=== PATIENT | male | born 1970 | race Caucasian/White ===

== ENCOUNTER → 2023-05-24 | Outpatient (CLI) | payer BC, SELFPAY ==
[2023-05-24 10:37] LABS: Absolute Lymphocyte Count 1.76 X10^3/uL (0.83-4.51); Absolute Neutrophil Count 2.8 X10^3/uL (2.0-7.7); Basophil# 0.05 X10^3/uL; Eosinophils% 1.9 % (0-5); Hematocrit 43.6 % (40-54); Hemoglobin 14.4 g/dL (13.0-16.5); Lymphocyte # 1.76 X10^3/ul (0.83-4.51); Lymphocyte % 33.5 % (19-41); Mean Corpuscular Hgb 30.4 pg (27.0-32.0); Mean Corpuscular Volume 92.2 fL (80-94); Mean Platelet Vol. 10.4 fl (6.2-12.0); Monocyte# 0.55 X10^3/uL; Monocyte% 10.5 % (0-10); NRBC Flagged by Analyzer 0 % (0-5); Neutrophil # 2.77 X10^3/uL (2.7-7.7); Neutrophil % 52.7 % (47-70); Platelet Count 242 K/mm3 (150-450); RBC Distribution Width CV 12.4 % (11.6-14.6); RBC Distribution Width SD 41.6 fl (35.1-43.9); Red Blood Count 4.73 M/mm3 (4.6-6.2); White Blood Count 5.3 K/mm3 (4.4-11.0)
[2023-05-24 11:17] LABS: ALB/GLOB Ratio 0.9 RATIO (0.9-2.4); AST(SGOT) 23 U/L (15-37); Alanine Aminotransfer ALT/SGPT 33 U/L (16-61); Albumin, Serum 3.6 g/dL (3.2-5.0); Alkaline Phosphatase 61 U/L (45-117); Anion Gap 5 (5-15); BUN 17 mg/dL (7-18); BUN/Creat Ratio 15.7 RATIO (10-20); Calcium,Total 8.8 mg/dL (8.5-10.1); Chloride 108 mmol/L (98-107); Cholesterol 219 mg/dL (200); Creatinine, Serum 1.08 mg/dL (0.70-1.30); EST Glomerular Filtration Rate 77 mL/min (>60); Est Glom Filt Rate - Afr Amer 93 mL/min (>60); Globulin 3.9 g/dL (2.2-4.2); Glucose 94 mg/dL (74-106); High Density Lipoprotein 56 mg/dL; PSA,Total- Diagnostic 1.44 ng/mL (0.0-4.0); Potassium 3.8 mmol/L (3.5-5.1); Protein, Total 7.5 g/dL (6.4-8.2); Sodium Level 139 mmol/L (136-145); Triglycerides 94 mg/dL; Very Low Density Lipoprotein 19 mg/dL (5-40)
[2023-05-24 12:16] LABS: Vitamin D,25 Hydroxy 43.2 ng/mL
== END | disposition home or self-care (01) ==
LOC: MFPLAB 09:41
PROVIDERS: PCP Family Medicine; Visit Provider Family Medicine
DX: R03.0 Elevated blood-pressure reading, without diagnosis of hypertension (principal); E55.9 Vitamin D deficiency, unspecified; Z13.1 Encounter for screening for diabetes mellitus; Z12.5 Encounter for screening for malignant neoplasm of prostate
CPT/HCPCS: 36415; 80053; 80061; 82306; 84153; 84443; 85025

== ENCOUNTER → 2023-07-20 | Outpatient (CLI) | payer BC, SELFPAY ==
--- NOTE | 2023-07-20 08:05 | MRI_ITS ---
STUDY: MRI LEFT ELBOW, WITHOUT AND WITH IV CONTRAST REASON FOR EXAM: Male, 53 years old. Mass left elbow - no pain. TECHNIQUE: Standardized fat and water weighted pulse sequences were obtained in all 3 orthogonal planes. Following the intravenous administration of 23 mm Clariscan contrast, additional postcontrast imaging was obtained. COMPARISON: Left elbow radiographs dated 06/30/2023. FINDINGS: There is a heterogeneous lobulated multiseptated mass in the subcutaneous fat along the posterolateral aspect of the elbow, overall measuring 1.9 cm AP, 4.7 cm transverse, and 5.9 cm craniocaudad. Following IV contrast administration there is heterogeneous internal enhancement superiorly and predominantly peripheral enhancement inferiorly. There is an additional heterogeneous mass in the subcutaneous fat posterior to the triceps myotendinous junction, overall measuring 1.1 cm AP, 1.9 cm transverse, and 3.1 cm craniocaudad. Following IV contrast administration, there is heterogeneous internal enhancement. Normal radio-capitellum articulation. Normal radial collateral ligamentous complex. Normal common extensor tendon. Normal ulnotrochlear articulation. Normal ulnar collateral ligamentous complex. Normal common flexor tendon. The cubital tunnel is normal, with a normal ulnar nerve. Normal biceps tendon and distal insertion. Normal lacertus fibrosis. Normal brachialis musculotendinous insertion. Normal triceps tendon and teno-osseous insertion. Normal olecranon process. The visualized distal humerus, proximal radius, and ulna are normal. The visualized muscles of the distal arm and proximal forearm are normal. MRI/Upper Ext Joint Only W/WO Cont IMPRESSION: Heterogeneously enhancing masses in the subcutaneous fat along the posterolateral aspect of the elbow and posterior to the triceps myotendinous junction. Heterogeneous internal enhancement in both masses, suggesting soft tissue hemangiomas or other vascular malformations. Recommend ultrasound correlation for further assessment and to confirm vascular flow. Electronically Signed: Danial Benitez MD at 10:32 EST ,
--- OUTSIDE RECORDS SUMMARY | 2023-07-20 08:13 | XMS RPT_ITS ---
Author Name Auto Generated Organization [facility] Care Team Providers Care [employer] Name Role Phone Velasquez Dominguez Attending Unavailable PROBLEMS No Problem Records Found PROCEDURES No Procedure Records Found RESULTS No Result Records Found ALLERGIES No Allergies Records Found ENCOUNTERS ADMIT/DISCHARGE ACCOUNT NUMBER ADMITTING ENCOUNTER CLASS LOCATION SOURCE 10/05/2022 [id number] [facility] No Payer Records Found
== END | disposition home or self-care (01) ==
PROVIDERS: PCP Family Medicine; Referring Provider Orthopaedic Surgery; Visit Provider Orthopaedic Surgery
DX: R22.32 Localized swelling, mass and lump, left upper limb (principal)
CPT/HCPCS: 73223; A9575

== ENCOUNTER → 2023-08-03 | Outpatient (CLI) | payer BC, SELFPAY ==
--- NOTE | 2023-08-03 11:03 | US_ITS ---
STUDY: SUPERFICIAL ULTRASOUND - LEFT ELBOW REASON FOR EXAM: Male, 53 years old. Palpable lumps TECHNIQUE: A superficial ultrasound was performed with real-time and static zamora-scale imaging. COMPARISON: MRI from 07/20/2023 FINDINGS: Substation Technician notes 2 separate heterogeneous solid and cystic masses posterior and lateral to the left elbow. Larger of the 2 masses is septated with the larger portion of the mass measuring 3.8 x 3.0 x 1.0 cm and the smaller of the septated lesion measuring 2.6 x 2.4 x 0.7 cm. There is a similar appearing complex hypoechoic solid and cystic lesion measuring 3.0 x 2.0 x 0.9 cm. Both collections show vascularity suggesting air soft tissue hemangiomas, though they could be sequela from previous trauma. Recent ultrasound suggested they represent hemangiomas. US/Ext Non Vasc Limited/Soft Tiss IMPRESSION: 2 separate complex solid and cystic vascular masses corresponding to the palpable areas in the left elbow. 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 Electronically Signed: Jose Shahid MD at 21:12 EDT ,
== END | disposition home or self-care (01) ==
PROVIDERS: PCP Family Medicine; Referring Provider Orthopaedic Surgery; Visit Provider Orthopaedic Surgery
DX: R22.32 Localized swelling, mass and lump, left upper limb (principal)
CPT/HCPCS: 76882

== ENCOUNTER → 2024-04-15 | Outpatient (CLI) | payer BC, SELFPAY ==
[2024-04-15 07:55] LABS: CREATININE FINGERSTICK 1.1 mg/dL (0.70-1.30); EGFR FINGERSTICK > 60.0000 mL/min (>60)
--- NOTE | 2024-04-15 07:58 | MRI_ITS ---
STUDY: MRI LEFT ELBOW, WITHOUT AND WITH IV CONTRAST REASON FOR EXAM: Male, 54 years old. Elbow mass. TECHNIQUE: Standardized fat and water weighted pulse sequences were obtained in all 3 orthogonal planes. Following the intravenous administration of 23 mL Clariscan contrast, additional postcontrast imaging was obtained. COMPARISON: Left elbow MRI without and with IV contrast dated 08/03/2023. FINDINGS: The previously seen heterogeneous lobulated multiseptated mass in the subcutaneous fat along the posterolateral aspect of the elbow has increased in size significantly since the prior examination dated 08/03/2023, now overall measuring 3.4 cm AP, 7.7 cm transverse, and 7.4 cm craniocaudad (previously measuring 1.9 x 4.7 x 5.9 cm). Following IV contrast administration there is mild heterogeneous internal enhancement inferiorly and predominantly a rind of peripheral enhancement. T2-weighted sequences demonstrate multiple pockets of internal lobulated cystic components, suggesting possible internal hemorrhage. There is persistent surrounding mild subcutaneous soft tissue edema. Normal radio-capitellum articulation. Normal radial collateral ligamentous complex. Normal common extensor tendon. Normal ulnotrochlear articulation. Normal ulnar collateral ligamentous complex. Normal common flexor tendon. The cubital tunnel is normal, with a normal ulnar nerve. Normal biceps tendon and distal insertion. Normal lacertus fibrosis. Normal brachialis musculotendinous insertion. Normal triceps tendon and teno-osseous insertion. Normal olecranon process. The visualized distal humerus, proximal radius, and ulna are normal. The visualized muscles of the distal arm and proximal forearm are normal. MRI/Upper Ext Joint Only W/WO Cont IMPRESSION: Enlarging heterogeneous lobulated multiseptated mass in the subcutaneous fat along the posterolateral aspect of the elbow, with mild heterogeneous internal enhancement inferiorly and predominantly a rind of peripheral enhancement. Multiple nonenhancing pockets of internal lobulated cystic components, suggesting possible internal hemorrhage. The differential diagnosis includes but is not limited to: venous/lymphatic malformation with internal hemorrhage versus soft tissue neoplasm with internal hemorrhage/cystic degeneration. Biopsy/excision would be required to establish the definitive histological diagnosis. Electronically Signed: Danial Benitez MD at 11:24 EST ,
== END | disposition home or self-care (01) ==
LOC: MRI 07:10
PROVIDERS: PCP Family Medicine; Referring Provider Orthopaedic Surgery; Visit Provider Orthopaedic Surgery
DX: R22.32 Localized swelling, mass and lump, left upper limb (principal)
CPT/HCPCS: 73223; A9575

== ENCOUNTER → 2024-09-20 | Outpatient (CLI) | payer BC, SELFPAY ==
--- NOTE | 2024-09-20 08:49 | MRI_ITS ---
EXAM: MRI left elbow without and with IV contrast CLINICAL HISTORY: S/p sarcoma removal COMPARISON: 04/15/2024 TECHNIQUE: Multiple contiguous axial images through the left elbow were obtained before and after the administration of intravenous contrast. 24 mL of intravenous Clariscan contrast was administered. Imaging sequences were performed to best displaced suspected pathology. 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 No discrete enhancing nodularity or masslike enhancement. No new suspicious mass or regional lymph nodes. Moderate common extensor and flexor tendinopathy at their humeral attachments, slightly greater medially. Intact radial and ulnar collateral ligaments. Mild insertional biceps tendinopathy. Brachialis tendon is intact. Mild triceps tendinopathy. Negative for fracture or marrow replacement. No significant joint effusion or arthropathy. 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 No suspicious masslike enhancement or nodularity. Continued follow-up recommended to ensure no recurrence. Reading Location: [facility]
== END | disposition home or self-care (01) ==
PROVIDERS: PCP Family Medicine; Referring Provider Student in an Organized Health Care Education/Training Program; Visit Provider Student in an Organized Health Care Education/Training Program
DX: C49.9 Malignant neoplasm of connective and soft tissue, unspecified (principal)
CPT/HCPCS: 73223

== ENCOUNTER 2025-02-06 09:39 | Outpatient (CLI) | payer BC, SELFPAY ==
[2025-02-06 12:16] LABS: Hematocrit 42.2 % (40-54); Hemoglobin 14.8 g/dL (13.0-16.5); Immature Granulocytes Count 0.030 X10^3/uL (0.0-0.0); Mean Corp Hgb Conc 35.1 g/dL (32-36); Mean Corpuscular Volume 92.3 fL (80-94); Mean Platelet Vol. 10.8 fl (6.2-12.0); NRBC Flagged by Analyzer 0 % (0-5); Platelet Count 234 K/mm3 (150-450); RBC Distribution Width CV 12.0 % (11.6-14.6); RBC Distribution Width SD 40.8 fl (35.1-43.9); Red Blood Count 4.57 M/mm3 (4.6-6.2); White Blood Count 4.6 K/mm3 (4.4-11.0)
[2025-02-06 13:05] LABS: AST(SGOT) 20 U/L (<=37); Alanine Aminotransfer ALT/SGPT 21 U/L (<=46); Albumin, Serum 3.7 g/dL (3.5-5.0); Alkaline Phosphatase 64 U/L (40-129); Anion Gap 16 (5-15); BUN 22 mg/dL (4-19); BUN/Creat Ratio 20.0 RATIO (10-20); Calcium,Total 8.8 mg/dL (7.6-11.0); Carbon Dioxide 19.9 mmol/L (21.0-32.0); Chloride 104 mmol/L (98-108); Cholesterol 228 mg/dL (<=200); Globulin 3.9 g/dL (2.2-4.2); Glucose 87 mg/dL (70-99); Low Density Lipoprotein Calc. 159 mg/dL; PSA,Total - Annual Screen 0.83 ng/mL (0.02-4.00); Potassium 4.7 mmol/L (3.3-5.1); Triglycerides 101 mg/dL; Very Low Density Lipoprotein 20 mg/dL (5-40); Vitamin D,25 Hydroxy 30.4 ng/mL (30-100); cholesterol:hdl ratio screen 4.66
== END 2025-02-06 23:59 | disposition home or self-care (01) ==
LOC: MFPLAB 09:40
PROVIDERS: PCP Family Medicine; Visit Provider Family Medicine
DX: I10 Essential (primary) hypertension (principal); Z12.5 Encounter for screening for malignant neoplasm of prostate; E55.9 Vitamin D deficiency, unspecified
CPT/HCPCS: 36415; 80053; 80061; 82306; 84153; 85025; G0103